=== PATIENT | male | born 1955 | race Caucasian/White ===

== ENCOUNTER 2017-06-18 06:53 | Day surgery (SDC) | payer BC ==
[2017-06-15 12:07] VITALS: BMI 26.1
--- NOTE | 2017-06-18 05:20 | P.GSHP ---
History of Present Illness H&P Date: 06/18/17 CHIEF COMPLAINT: GERD HISTORY OF PRESENT ILLNESS: The patient is a 61-year-old male who presents reports gastroesophageal reflux disease. Upper endoscopy was offered for further evaluation and management. PAST MEDICAL HISTORY: Please see list. PAST SURGICAL HISTORY: Please see list. MEDICATIONS: Please see list. ALLERGIES: Please see list. SOCIAL HISTORY: No illicit drug use FAMILY HISTORY: No reports of Crohn disease or ulcerative colitis. REVIEW OF ORGAN SYSTEMS: CONSTITUTIONAL: No reports of fevers or chills. GI: Denies any blood in stools or constipation. PHYSICAL EXAM: VITAL SIGNS: Stable GENERAL: Well-developed and pleasant in no acute distress. HEENT: No scleral icterus. Extraocular movements grossly intact. Moist buccal mucosa. NECK: Supple without lymphadenopathy. CHEST: Unlabored respirations. Equal bilateral excursions. CARDIOVASCULAR: Regular rate and rhythm. Distal 2+ pulses. ABDOMEN: Soft, nondistended. MUSCULOSKELETAL: No clubbing, cyanosis, or edema. ASSESSMENT: 1. Gastroesophageal reflux disease PLAN: 1. Recommend proceeding with an upper endoscopy Past Medical History Past Medical History: GERD/Reflux, Hyperlipidemia, Hypertension Additional Past Medical History / Comment(s): "wake up at night feeling like I am choking" History of Any Multi-Drug Resistant Organisms: None Reported Past Surgical History: Hernia Repair Additional Past Surgical History / Comment(s): colonoscopy, EGD, lap. isabelle fundoplasty Past Anesthesia/Blood Transfusion Reactions: Motion Sickness Smoking Status: Never smoker - Past Family History Mother Family Medical History: No Reported History Medications and Allergies Home Medications Medication Instructions Recorded Confirmed Type Omeprazole [PriLOSEC] 20 mg PO AC-BRKFST 06/15/17 06/15/17 History Allergies Allergy/AdvReac Type Severity Reaction Status Date / Time No Known Allergies Allergy Verified 06/15/17 11:41
[~2017-06-18 06:53] MED LIST: LACTATED RINGERS 1,000 ML IV SCH; LIDOCAINE 1% 20 ML VIAL (10MG/ML) FOR IV START INTRADERMA PRN
[2017-06-18 07:25] VITALS: RESP 18; TEMP 97.1
[2017-06-18] MEDS ORDERED: PROPOFOL 10 MG/ML 20 ML VIAL IV ONE (09:00)
[2017-06-18] MEDS ORDERED: LIDOCAINE 1% INJ 10MG/ML (20 ML MDV) ONE (09:00)
--- NOTE | 2017-06-18 09:15 | P.PCN ---
Date of Procedure: 06/18/17 Description of Procedure: PREOPERATIVE DIAGNOSIS: Gastroesophageal reflux disease. History of Denton fundoplasty POSTOPERATIVE DIAGNOSIS: Gastroesophageal reflux disease. History of Denton fundoplasty Mechanical failure of Denton fundoplasty Diaphragmatic hiatal hernia without obstruction. OPERATION: Esophagogastroduodenoscopy SURGEON: Marci Lane MD ANESTHESIA: MAC. INDICATIONS: The patient is a 61-year-old female who presents with a history of reflux disease. Benefits and risks of the procedure were described. Informed consent was obtained. DESCRIPTION: The patient was brought into the endoscopy suite and laid in the left lateral decubitus position. An Olympus gastroscope was passed along the posterior oropharynx down to the distal esophagus where the squamocolumnar junction was encountered at 39 cm from the incisors. During his coughing spell, projection of the gastric mucosa was found through the Denton fundoplasty was found highly suspicious of slipped Denton. The stomach was entered and no bile reflux was found. Additional findings are listed below. The first through third portion of the duodenum was examined and unremarkable. Retroflexion of the scope confirmed Hill grade 2 lower esophageal valve. The squamocolumnar junction demostrated no acute LA grade A erosive esophagitis. The stomach was desufflated. The patient tolerated the procedure well. FINDINGS: Squamocolumnar junction 39 cm from the incisors. Protruding gastric mucosa highly suspicious of slipped Denton fundoplasty upon entry Hill grade 2 lower esophageal valve. No LA grade A erosive esophagitis. No active duodenitis. RECOMMENDATIONS: Recommend floor esophagram to evaluate for slipped Denton fundoplasty Will likely need revision of his Denton with manometry Plan - Discharge Summary New Discharge Prescriptions: No Action Omeprazole [PriLOSEC] 20 mg PO AC-BRKFST Discharge Medication List Omeprazole [PriLOSEC] 20 mg PO AC-BRKFST 06/15/17 [History]
[2017-06-18 10:15] VITALS: BP 151/98; PULSE 45
== END 2017-06-18 10:20 | disposition home or self-care (01) ==
LOC: ORWHC2ENDO 06:53
PROVIDERS: ATTEND Surgery Plastic and Reconstructive Surgery
DX: K21.9 Gastro-esophageal reflux disease without esophagitis (principal); K44.9 Diaphragmatic hernia without obstruction or gangrene; Y83.8 Other surgical procedures as the cause of abnormal reaction of the patient, or of later complication, without mention of misadventure at the time of the procedure; E78.5 Hyperlipidemia, unspecified; I10 Essential (primary) hypertension; Z79.899 Other long term (current) drug therapy
CPT/HCPCS: 43235; J2001; J2704

== ENCOUNTER → 2017-06-18 | Outpatient (CLI) | payer BC ==
--- NOTE | 2017-06-18 11:07 | FL ---
EXAMINATION TYPE: FL barium swallow DATE OF EXAM: 06/18/2017 LIMITED UGI-ESOPHAGRAM: CLINICAL HISTORY: History of Ramirez fundoplication surgery 2 years ago presents with new onset choki ng since fall increasing is severely recently. TECHNIQUE: Limited esophagram is performed utilizing 20 oz of barium. A total of 7 seconds of fluoro scopic time was utilized during procedure. 17 spot images were saved. Comparison: Prior upper GI study dated May 25, [address] chest dated March 22, 2016. FINDINGS: The patient swallowed contrast without difficulty or delay. Esophageal peristalsis and mo tility are within normal limits. There is satisfactory flow of contrast along the diaphragmatic hiatu s into the stomach, there is no evidence of contrast extravasation to suggest leak. No recurrent hiat al hernia is seen. Diameter of channel at diaphragmatic hiatus does appear slightly narrowed versus p rior upper GI study. Patient remains asymptomatic. IMPRESSION: No evidence of leak recurrent hiatal hernia or significant obstruction though diameter of channel at diaphragmatic hiatus is diminished in caliber versus comparison upper GI images May 25, 2015.
== END | disposition home or self-care (01) ==
LOC: RADFLMAIN 10:27
PROVIDERS: ATTEND Surgery Plastic and Reconstructive Surgery
DX: R13.10 Dysphagia, unspecified (principal)
CPT/HCPCS: 74220

== ENCOUNTER → 2017-07-04 | Outpatient (CLI) | payer BC | END | disposition home or self-care (01) | LOC: LABPAT 12:54 | PROVIDERS: ATTEND Surgery Plastic and Reconstructive Surgery | DX: Z01.812 Encounter for preprocedural laboratory examination (principal); K44.9 Diaphragmatic hernia without obstruction or gangrene | CPT/HCPCS: 36415; 86850; 86900; 86901 ==

== ENCOUNTER 2017-07-12 11:34 | Inpatient (IN) | payer BC ==
[2017-07-04 11:10] VITALS: BMI 26.5
--- NOTE | 2017-07-12 07:53 | P.GSHP ---
History of Present Illness H&P Date: 07/12/17 CHIEF COMPLAINT: Recurrent GERD. HISTORY OF PRESENT ILLNESS: Cliff Herrera is a 61 year-old gentleman who comes in with recurrent GERD. An upper endoscopy demonstrated a sliding Denton fundoplasty. Upper endoscopy also demonstrated no gastric ulcers. He also completed an esophagram. He has yet to do a manometry. He had chronic cough for which he sees Dr. Flood. Now he presents for further evaluation and management. PAST MEDICAL HISTORY: Please see list. PAST SURGICAL HISTORY: Please see list. MEDICATIONS: Please see list. ALLERGIES: Please see list. SOCIAL HISTORY: No illicit drug use FAMILY HISTORY: No reports of Crohn disease or ulcerative colitis. REVIEW OF ORGAN SYSTEMS: CONSTITUTIONAL: No fevers or chills. HEENT: Denies any trouble with vision, hearing or nosebleeds. No difficulty swallowing. LYMPHATIC: The patient denies any lumps and bumps around the neck. ENDOCRINE: Denies any thyroid disorders. Denies any blood sugar glucose intolerance. RESPIRATORY: Denies pneumonia. Denies any troubles with breathing or dyspnea on exertion. Has chronic cough. CARDIOVASCULAR: Denies any chest pain, palpitations, or recent heart attacks. GASTROINTESTINAL: Denies fatty food intolerance. Denies change in bowel habits and gas bloat. Has GERD. GENITOURINARY: Denies any blood in urine or increased urinary frequency. MUSCULOSKELETAL: Denies any back pain, stiffness or joint arthritis. NEUROLOGIC: Denies any numbness or tingling along the distal extremities. No seizure disorders or headaches. PSYCHIATRIC: Denies any depression or suicidal ideation. HEMATOLOGIC: Denies any abnormal bleeding or bruising. BREASTS: Denies any breast lumps, pain or nipple discharge. SKIN: No current skin cancer. No rash. PHYSICAL EXAM: Patient is a 61-year-old male. GENERAL: Well developed and in no acute distress. Pleasant. HEENT: No sclera icterus. Extraocular movements grossly intact. Moist buccal mucosa. Head is atraumatic, normocephalic. Hears conversational speech. No nasal drainage. NECK: Supple without lymphadenopathy. No JV distention. CHEST: Non-labored respirations and equal bilateral excursions. CARDIOVASCULAR: Regular rate and rhythm. Palpable 2+ radial pulses. ABDOMEN: Soft. Non-tender. Nondistended. MUSCULOSKELETAL: No clubbing, cyanosis or edema. NEUROLOGIC: No focal or lateralizing signs. PSYCH: Appropriate affect. Alert and oriented to person, place and time. SKIN: Well perfused. Good skin turgor. STUDIES: An esophagram demonstrated no moderate regurgitation. Upper endoscopy also consistent with sliding Denton. ASSESSMENT: 1. Recurrent GERD. 2. Recurrent hiatal hernia. PLAN: 1. A manometry was performed showing ineffective esophageal motility, short LES , and low pressure of the LES. 2. Revision of laparoscopic hiatal hernia repair with possible Denton was described. As he is a revision, risks of complications were described. 3. He reports being on steroids by belt builder, which actually helped improve his cough and helps with his overall procedure. 4. In-patient hospitalization was advised at least 2 nights. 5. Hiatal hernia repair with mesh was reviewed with robotic approach. 6. DVT prophylaxis. Past Medical History Past Medical History: GERD/Reflux, Hyperlipidemia, Hypertension Additional Past Medical History / Comment(s): "wake up at night feeling like I am choking". NO MEDS FOR CHOLESTROL OR HTN- UNDER CONTROL PER PT. DX HIATAL HERNIA History of Any Multi-Drug Resistant Organisms: None Reported Past Surgical History: Hernia Repair Additional Past Surgical History / Comment(s): colonoscopy, EGD, lap. denton fundoplasty-2016 Past Anesthesia/Blood Transfusion Reactions: Motion Sickness Smoking Status: Never smoker - Past Family History Mother Family Medical History: No Reported History Medications and Allergies Home Medications Medication Instructions Recorded Confirmed Type Omeprazole [PriLOSEC] 20 mg PO AC-BRKFST 06/15/17 07/04/17 History Ranitidine HCl [Zantac] 150 mg PO DAILY #30 tab 06/18/17 07/04/17 Rx Allergies Allergy/AdvReac Type Severity Reaction Status Date / Time No Known Allergies Allergy Verified 07/04/17 11:06
[~2017-07-12 11:34] MED LIST changes: +DEXAMETHASONE SOD PHOSPHATE 10 MG/ML 1 ML VIAL IV ONE; +HYDROmorphone 0.5 MG/0.5 ML SYRINGE IVP PRN; -LACTATED RINGERS 1,000 ML IV SCH; -LIDOCAINE 1% 20 ML VIAL (10MG/ML) FOR IV START INTRADERMA PRN; +MIDAZOLAM 2 MG/2 ML VIAL IV PRN; +MORPHINE SULFATE 2 MG/ML SYRINGE IV PRN; +SCOPOLAMINE 1.5MG/72HR PATCH TRANSDERM ONE; +ceFAZolin IN SWFI 2 GM/20 ML SYRINGE IVP ONE; +fentaNYL (PF) 50 MCG/ML 2 ML AMP IV PRN
[2017-07-12 12:11] LABS: Glucose,Whole Blood 89 mg/dL (75-99)
[2017-07-12] MEDS: LIDOCAINE 1% 20 ML VIAL (10MG/ML) FOR IV START INTRADERMA PRN ×2 (12:14→12:18)
[2017-07-12] MEDS: LACTATED RINGERS 1,000 ML IV SCH ×3 (12:14→12:58)
[2017-07-12] MEDS: ONDANSETRON 4 MG/2 ML VIAL IVP ONE ×2 (12:28→17:56)
[2017-07-12] MEDS: HEPARIN SODIUM,PORCINE 5,000 UNIT/ML 1 ML VIAL SQ ONE ×2 (12:30→17:56)
[2017-07-12 12:53] LABS: HCT 48.6 % (39.0-53.0); HGB 16.6 gm/dL (13.0-17.5); MCH 30.9 pg (25.0-35.0); MCHC 34.1 g/dL (31.0-37.0); MCV 90.8 fL (80.0-100.0); Mean Platelet Volume 8.2; Platelet Count 183 k/uL (150-450); RBC 5.35 m/uL (4.30-5.90); RDW 12.9 % (11.5-15.5); WBC 6.3 k/uL (3.8-10.6)
[2017-07-12 13:01] LABS: ALT 38 U/L (21-72); AST 36 U/L (17-59); Albumin 4.4 g/dL (3.5-5.0); Alkaline Phosphatase 56 U/L (38-126); Anion Gap 15 mmol/L; Blood Urea Nitrogen 14 mg/dL (9-20); Calcium 10.9 mg/dL (8.4-10.2); Carbon Dioxide 23 mmol/L (22-30); Chloride 105 mmol/L (98-107); Glucose 89 mg/dL (74-99); Potassium 4.4 mmol/L (3.5-5.1); Sodium 143 mmol/L (137-145); Total Bilirubin 1.4 mg/dL (0.2-1.3); Total Protein 7.1 g/dL (6.3-8.2)
[2017-07-12] MEDS ORDERED: MIDAZOLAM 2 MG/2 ML VIAL ONE (13:01)
[2017-07-12] MEDS ORDERED: PROPOFOL 10 MG/ML 20 ML VIAL IV ONE (13:01)
[2017-07-12] MEDS ORDERED: MEPERIDINE 50 MG/ML SYRINGE ONE (13:01)
[2017-07-12] MEDS ORDERED: ePHEDrine SULFATE/0.9% NACL/PF 50 MG/5 ML SYRINGE IV ONE (13:01)
[2017-07-12] MEDS ORDERED: SUCCINYLCHOLINE CHLORIDE 100 MG/5 ML SYR IV ONE (13:01)
[2017-07-12] MEDS ORDERED: ROCURONIUM BROMIDE 10 MG/ML 10 ML VIAL IV ONE (13:01)
[2017-07-12] MEDS ORDERED: fentaNYL (PF) 50 MCG/ML 2 ML AMP ONE (13:01)
[2017-07-12] MEDS ORDERED: LIDOCAINE 1% INJ 10MG/ML (20 ML MDV) ONE (13:01)
[2017-07-12] MEDS ORDERED: BUPIVACAINE (PF) 0.5% 30 ML VIAL SQ ONE (13:25)
[2017-07-12] MEDS ORDERED: LACTATED RINGERS 1,000 ML IV ONE ×2 (15:05→15:54)
[2017-07-12] MEDS ORDERED: diphenhydrAMINE 50 MG/ML 1 ML VIAL IVP ONE (16:54)
--- NOTE | 2017-07-12 17:00 | P.OP ---
Date of Procedure: 07/12/17 Description of Procedure: DESCRIPTION OF PROCEDURE(S): SURGEON: BUD ALTAMIRANO MD LEASING SALES CONSULTANT: 1. Ashlee Hui. 2. Inés Wilkes. PREOPERATIVE DIAGNOSES: 1. Gastroesophageal reflux disease. 2. Paraesophageal hiatal hernia, midline, recurrent 3. History of previous Denton fundoplasty 4. Essential hypertension 5. Hyperlipidemia 6. Chronic cough 7. Ineffective esophageal motility POSTOPERATIVE DIAGNOSES: 1. Gastroesophageal reflux disease. 2. Paraesophageal incarcerated hiatal hernia, midline, recurrent, 4 x 4 cm 3. History of previous Denton fundoplasty 4. Slipped Denton fundoplasty 5. Essential hypertension 6. Hyperlipidemia 7. Chronic cough 8. Adverse reaction to foreign body, intra-abdominal mesh 9. Ineffective esophageal motility OPERATION: 1. Robotic-assisted da Gumaro Xi laparoscopic takedown of Denton fundoplasty 2. Robotic-assisted da Gumaro Xi laparoscopic extensive lysis of adhesions over 2 hours for perigastric adhesions 3. Robotic-assisted da Gumaro Xi laparoscopic reduction and repair of recurrent incarcerated paraesophageal hiatal hernia, 4 x 4 cm, with Abingdon Biopatch A 8 x 8 cm. 4. Robotic-assisted da Gumaro Xi laparoscopic removal of foreign body, previous mesh from hiatal hernia 5. Intraoperative esophagogastroduodenoscopy ANESTHESIA: General with local anesthetic. ESTIMATED BLOOD LOSS: 75 mL SPECIMENS REMOVED: Foreign body consistent with previous hiatal hernia mesh COMPLICATIONS: None. FINDINGS: 1. Thoracic length 16.5 cm. 2. Slipped Denton fundoplasty 3. Incarcerated upper pole of the stomach 4. Paraesophageal incarcerated recurrent diaphragmatic hiatal hernia 4 cm axial length by 4 cm width, with moderate dissection into the mediastinum. 5. Abingdon Biopatch A onlay mesh placed, posterior hiatal hernia repair reinforcement 6. Closure of the hiatus consistent with 56-Tajik bougie. 7. Takedown of Denton fundoplasty secondary to ineffective esophageal motility to prevent dysphagia INDICATIONS: The patient is a 61-year-old male who presents with gastroesophageal reflux and a symptomatic diaphragmatic hiatal hernia. Preoperative workup including upper endoscopy demonstrated recurrent hiatal hernia and slipped Denton fundoplasty. He completed an esophageal manometry demonstrating ineffective esophageal dysmotility. Given the severity of his symptoms, particularly of his symptomatic diaphragmatic hiatal hernia, he had elected for surgical intervention. Benefits and risks including bleeding, infection, recurrence, dysphagia, injury to the lung, need for further surgery was described at length. Informed consent was obtained. DESCRIPTION: The patient was brought into the operating room and placed in supine position. Preoperatively he had received heparin subcutaneously for DVT prophylaxis. After general induction, the abdomen was prepped and draped in standard sterile fashion. The patient had previously voided prior to coming to the operating room. Ioban draping was placed along the abdomen. A timeout protocol was confirmed with the surgical team, for which the patient's name, procedure to be performed including DVT prophylaxis with bilateral SCDs, and preoperative antibiotics were also confirmed. Robotic da Gumaro Xi system was prepped and primed. At 12 cm from the xiphoid to just below the umbilicus, proposed port sites were marked with indelible marker along the left axillary line, left mid-clavicular line with each ports were marked 10 cm from each other. A 5 mm 0 degrees laparoscopic trocar entry was performed along the left upper quadrant. The abdomen was insufflated to 15 mmHg pressure he tolerated well. Diagnostic laparoscopy demonstrated no injury to bowel, viscera, or mesentery. The gallbladder was unremarkable. The liver surface was unremarkable. No injury had occurred to the small bowel or viscera. Along the hiatus, moderate perigastric adhesions were found from his previous fundoplasty. Next, one 8 mm robotic port was placed along the right upper abdomen. An 8-mm port was were placed along the left lateral abdominal wall. The camera 8-mm port was maintained along the epigastrium via the hernia defect. A 12 mm port was placed along the left upper abdominal wall after exchanging the 5 mm port. Please note that the ports were placed at least 20 cm away from the target anatomy. Care was taken to check that each robotic arm were safely away from collision with the bed or the patient. At the epigastrium, a medium sized Emelia liver retractor was placed under direct visualization with the Iron Model Maker Fiberglass placed over the right shoulder of the patient. The additional third robotic arm was used.. The patient was repositioned in reverse Trendelenburg position at 14-degrees after lowering the bed. The robot was docked above the left side of the patient. Using a grasper for arm 3, a grasper for arm 1, including vessel sealer for arm 4, the robotic system was docked and primed as described. Instruments were interchanged by the web production assistant. I had sat at the console. The phrenoesophageal ligament had moderate scarring where the distal esophagus was mobilized circumferentially. Care was taken to avoid any injury to the bilateral vagi nerves. An incarcerated hiatal hernia lipoma was found along the mediastinum and retracted into the abdominal cavity. Next dissection into the mediastinum was performed to the mid esophagus. The left and right crura was identified. A Italian cheese cystic lesions were found about the hiatus including posteriorly from his previous mesh repair. The foreign body was excised using scissors and vessel sealer. Much of the mesh was removed to allow complete mobilization and freeing of the Denton fundoplasty which had slipped along the cardia of the stomach. The hiatal hernia sac was incarcerated into the mediastinum and divided to allow complete mobilization and freeing of the distal esophagus into the abdominal cavity. Care was taken to avoid any gastrotomy to the incarcerated upper pole of the stomach including takedown of the Denton fundoplasty. Extensive lysis of adhesions went more than 2 hours for extended dissection of the adherent stomach t to the left diaphragm. The measured defect was consistent with 4 cm axial length and 4 cm in width. The distal esophagus of at least 3 cm was brought into the abdominal cavity. Once the hiatus and crura was dissected, 2-0 VLOC suture was placed as a running suture to re-approximate the diaphragmatic hiatus posteriorly. To buttress the repair, a Abingdon Biopatch A was prepared along the back table and cut in a anderson-hole fashion as to reinforce the repair as an underlay. The mesh was placed along the crural repair posteriorly then cut in half and tagged using horizontal mattress sutures using 2-0 VLOC. A repeat Denton fundoplasty was avoided as the patient has ineffective esophageal dysmotility which would cause postoperative dysphagia and worsening symptoms. I went to the head of the bed to perform intraoperative esophagogastroduodenoscopy. A 56-Tajik bougie was carefully placed along the posterior oropharynx through the hiatus as a visual aid for hiatus closure and then removed. An Olympus gastroscope was passed through posterior oropharynx, where the GE junction was found distal to the diaphragmatic hiatus. The intra-abdominal esophageal length obtained during the case was over 3 cm. The stomach was entered. The duodenum was unremarkable. Retroflexion of the scope confirmed a Hill grade 1+ lower esophageal valve. The stomach had been desufflated. No evidence of leaks were found or mucosal defects of the esophagus or stomach. The hiatal closure was consistent with a 56 Tajik bougie as a bougie was passed. This concluded the endoscopic portion of the case. The robot was undocked from the patient. I re-scrubbed into the case. All instruments and pneumoperitoneum were evacuated from the abdominal cavity. Incisions were reapproximated using 4-0 Monocryl in an interrupted subcuticular fashion. All incisions were cleaned using dilute hydrogen peroxide. The 12-mm port site fascial defect was less than 8 mm in size. Dermabond was applied to the skin. Local anesthetic was infiltrated in all wounds for postop analgesia. Multiple intra-abdominal films were obtained. At the end of the procedure, needle, sponge, and instrument count was verified correct by the surgical asst. The patient had tolerated the procedure well and was taken to the postanesthesia unit in stable condition. Intraoperative films were reviewed with the patient's family who were pleased with the level of care. Plan - Discharge Summary Discharge Rx Participant: Yes New Discharge Prescriptions: No Action Omeprazole [PriLOSEC] 20 mg PO AC-BRKFST Ranitidine HCl [Zantac] 150 mg PO DAILY #30 tab Discharge Medication List Omeprazole [PriLOSEC] 20 mg PO AC-BRKFST 06/15/17 [History] Ranitidine HCl [Zantac] 150 mg PO DAILY #30 tab 06/18/17 [Rx]
[2017-07-12] MEDS ORDERED: diphenhydrAMINE 50 MG/ML 1 ML VIAL IVP PRN (17:01)
[2017-07-12] MEDS ORDERED: SODIUM CHLORIDE 0.9% 1,000 ML IV ONE (17:01)
[2017-07-12] MEDS ORDERED: ONDANSETRON 4 MG/2 ML VIAL IVP PRN (17:01)
[2017-07-12] MEDS ORDERED: HYDROcodone/APAP 15 ML SOLUTION PO PRN (17:01)
[2017-07-12] MEDS ORDERED: NALOXONE 0.4 MG/ML 1 ML VIAL IV PRN (17:01)
[2017-07-12] MEDS: KETOROLAC 30 MG/ML 1 ML VIAL IVP SCH (17:40)
[2017-07-12] MEDS: MORPHINE SULFATE/PF 10MG/10ML VL IVP PRN ×2 (19:20→22:43)
[2017-07-12] MEDS: ALBUTEROL NEBULIZED 2.5 MG/3 ML INHALATION SCH (19:30)
[2017-07-12 20:15] VITALS: RESP 16
[2017-07-12] MEDS: AMPICILLIN-SULBACTAM 3 GM in SODIUM CHLORIDE 0.9% 100 ML IVPB SCH (20:37)
[2017-07-12] MEDS: SIMETHICONE 40 MG/0.6 ML DROPS 2,000 MG/30 ML BOTTLE PO SCH (20:38)
[2017-07-12] MEDS: HYOSCYAMINE ORAL DROPS 1.875 MG/15 ML BOTTLE PO SCH (20:38)
[2017-07-12] MEDS: 0.9% NACL WITH KCL 20 MEQ/L 1,000 ML IV SCH ×2 (20:38→23:58)
[2017-07-13] MEDS: SIMETHICONE 40 MG/0.6 ML DROPS 2,000 MG/30 ML BOTTLE PO SCH ×3 (01:32→12:36)
[2017-07-13] MEDS: HYOSCYAMINE ORAL DROPS 1.875 MG/15 ML BOTTLE PO SCH ×2 (01:32→06:37)
[2017-07-13] MEDS: AMPICILLIN-SULBACTAM 3 GM in SODIUM CHLORIDE 0.9% 100 ML IVPB SCH (01:32)
[2017-07-13] MEDS: KETOROLAC 30 MG/ML 1 ML VIAL IVP SCH ×3 (01:32→12:35)
[2017-07-13] MEDS: MORPHINE SULFATE/PF 10MG/10ML VL IVP PRN ×2 (03:38→07:30)
[2017-07-13] MEDS: ALBUTEROL NEBULIZED 2.5 MG/3 ML INHALATION SCH ×3 (07:18→16:14)
[2017-07-13] MEDS: 0.9% NACL WITH KCL 20 MEQ/L 1,000 ML IV SCH (07:46)
[2017-07-13 07:56] LABS: Basophils % (A) 0 %; Eosinophils % (A) 0 %; HCT 39.9 % (39.0-53.0); Lymphocytes # (A) 0.9 k/uL (1.0-4.8); Lymphocytes % (A) 10 %; MCH 31.5 pg (25.0-35.0); MCHC 33.9 g/dL (31.0-37.0); Monocytes # (A) 0.4 k/uL (0-1.0); Monocytes % (A) 5 %; Neutrophils # (A) 7.8 k/uL (1.3-7.7); Neutrophils % (A) 84 %; Platelet Count 175 k/uL (150-450); WBC 9.2 k/uL (3.8-10.6)
[2017-07-13 07:58] LABS: Anion Gap 7 mmol/L; Blood Urea Nitrogen 12 mg/dL (9-20); Calcium 9.7 mg/dL (8.4-10.2); Carbon Dioxide 27 mmol/L (22-30); Chloride 102 mmol/L (98-107); HGB 13.5 gm/dL (13.0-17.5); Magnesium 1.9 mg/dL (1.6-2.3); Phosphorus 3.8 mg/dL (2.5-4.5); Potassium 4.5 mmol/L (3.5-5.1); Sodium 136 mmol/L (137-145)
[2017-07-13] MEDS ORDERED: 0.9% NACL WITH KCL 20 MEQ/L 1,000 ML IV SCH (08:00)
[2017-07-13] MEDS ORDERED: TAMSULOSIN 0.4 MG CAP.ER.24H PO SCH (09:00)
[2017-07-13] MEDS ORDERED: ENOXAPARIN 40 MG/0.4 ML SYRINGE SQ SCH (09:00)
[2017-07-13] MEDS ORDERED: PANTOPRAZOLE 40 MG/10 ML VIAL IV SCH (09:00)
--- NOTE | 2017-07-13 10:10 | FL ---
EXAMINATION TYPE: FL UGI DATE OF EXAM: 07/13/2017 LIMITED UGI-ESOPHAGRAM: CLINICAL HISTORY: Status post Ramirez procedure yesterday. TECHNIQUE: Limited UGI-esophagram is performed utilizing 20 oz of contrast. A total of 41 seconds of fluoroscopic time was utilized during procedure. 6 spot images are saved. FINDINGS: The patient swallowed contrast without difficulty or delay. Esophageal peristalsis and mo tility are within normal limits. There is good flow of contrast along the diaphragmatic hiatus into t he stomach, there is no evidence of contrast extravasation to suggest leak. No persistent hiatal oneida ia is seen. Patient remains asymptomatic. Minimal amount of pneumoperitoneum below right hemidiaphrag m is presumed postsurgical. IMPRESSION: No evidence of leak or significant obstruction status post reoperation on Ramirez fundopli cation surgery performed yesterday.
--- NOTE | 2017-07-13 11:21 | P.PN ---
<KristianSisHarriett M - Last Filed: 07/13/17 11:11> Subjective Progress Note Date: 07/13/17 61-year-old male seen at bedside noted patient had episodes of urinary retention last evening voided 150 bladder scan for 700. Flomax has been initiated. Patient did have a limited esophagram done this morning no evidence of a leak or significant obstruction noted. Patient states he has been up ambulating in the hallway. Not passing gas no stool. Tolerating diet as prescribed Postop July 12 robotic-assisted laparoscopic takedown of denton fundoplication , extensive lysis of adhesions , reduction and repair of recurrent incarcerated periesophageal hiatal hernia , pelviscopy removal of the foreign body , previous mesh from hiatal hernia Objective - Vital Signs Vital signs: Vital Signs Temp 98.7 F 07/13/17 07:58 Pulse 76 07/13/17 07:58 Resp 16 07/13/17 07:58 BP 145/80 07/13/17 07:58 Pulse Ox 95 07/13/17 07:58 Intake & Output 07/12/17 07/13/17 07/13/17 18:59 06:59 18:59 Intake Total 2500 1890 600 Output Total 375 1700 875 Balance 2125 190 -275 Weight 83.915 kg Intake: IV 2500 600 0.9% NaCl with KCl 20 Meq 600 /l 1,000 ml @ 100 mls/hr IV .Q10H LUISITO Rx#: [id number] Intake, IV Titration 1350 Amount 0.9% NaCl with KCl 20 Meq 1150 /l 1,000 ml @ 150 mls/hr IV .Q6H40M LUISITO Rx#: [id number] Ampicillin-Sulbactam 3 gm 200 In Sodium Chloride 0.9% 100 ml @ 100 mls/hr IVPB Q6HR LUISITO Rx#:[id number] Oral 540 Output: Urine 300 1700 875 Straight 800 725 Estimated Blood Loss 75 Other: # Voids 2 - Exam Physical exam 61-year-old male sitting up in bed appears in no acute distress pain medication effective for pain control oriented 3 Lungs clear adequate air movement on room air sats 95% no cough Heart S1-S2 audible regular Abdomen surgical incision sites dressings dry soft few hypoactive bowel tones no nausea no vomiting no stool tolerating bariatric clear Extremity no edema - Labs CBC & Chem 7: 07/13/17 06:57 03/30/18 06:57 Labs: Abnormal Lab Results - Last 24 Hours (Table) 07/12/17 07/13/17 07/13/17 Range/Units 12:10 06:57 06:57 Neutrophils # 7.8 H (1.3-7.7) k/uL Lymphocytes # 0.9 L (1.0-4.8) k/uL Sodium 136 L (137-145) mmol/L Calcium 10.9 H (8.4-10.2) mg/dL Total Bilirubin 1.4 H (0.2-1.3) mg/dL Assessment and Plan Assessment: Impression Symptomatic symptoms esophageal reflex due to diaphragmatic hiatus hernia Recurrent GERD Recurrent hiatal hernia Postop July 12 robotic-assisted laparoscopic removal of foreign body, laparoscopic takedown of Denton fundoplication, extensive lysis of adhesions, reduction and repair of recurrent incarcerated periesophageal hiatal hernia Postop urinary retention Plan We'll stop the scopolamine patch and hycosamine Continue postop surgical care Encourage ambulation Bariatric clear liquid diet DVT and GI prophylaxis Flomax as ordered Pain control The above impression and plan of care have been discussed and directed by signing physician. Harriett Townsend nurse practitioner acting as scribe for signing physician. <Marci Lane N - Last Filed: 07/13/17 16:10> Objective - Vital Signs Vital signs: Vital Signs Temp 98.0 F 07/13/17 15:00 Pulse 61 07/13/17 15:00 Resp 16 07/13/17 15:00 BP 149/84 07/13/17 15:00 Pulse Ox 96 07/13/17 15:00 Intake & Output 07/12/17 07/13/17 07/13/17 18:59 06:59 18:59 Intake Total 2500 1890 600 Output Total 375 1700 1775 Balance 2125 190 -1175 Weight 83.915 kg 83.915 kg Intake: IV 2500 600 0.9% NaCl with KCl 20 Meq 600 /l 1,000 ml @ 100 mls/hr IV .Q10H [facility]ISITO Rx#: [id number] Intake, IV Titration 1350 Amount 0.9% NaCl with KCl 20 Meq 1150 /l 1,000 ml @ 150 mls/hr IV .Q6H40M [facility]ISITO Rx#: [id number] Ampicillin-Sulbactam 3 gm 200 In Sodium Chloride 0.9% 100 ml @ 100 mls/hr IVPB Q6HR [facility] Rx#:[id number] Oral 540 Output: Urine 300 1700 1775 Straight 800 725 Estimated Blood Loss 75 Other: Voiding Method Urinal # Voids 2 - Labs CBC & Chem 7: 07/13/17 06:57 07/13/17 06:57 Labs: Abnormal Lab Results - Last 24 Hours (Table) 07/13/17 07/13/17 Range/Units 06:57 06:57 Neutrophils # 7.8 H (1.3-7.7) k/uL Lymphocytes # 0.9 L (1.0-4.8) k/uL Sodium 136 L (137-145) mmol/L
--- NOTE | 2017-07-13 13:45 | US ---
EXAMINATION TYPE: US gallbladder DATE OF EXAM: 07/13/2017 COMPARISON: NONE CLINICAL HISTORY: Right upper quadrant pain. Difficult exam due to overlying bowel gas. Patient had h iatal hernia repair done yesterday. EXAM MEASUREMENTS: Liver Length: 14.0 cm Gallbladder Wall: 0.2 cm CBD: 0.4 cm Right Kidney: 9.5 x 5.1 x 5.2 cm Pancreas: Obscured by bowel gas Liver: Heterogeneous Gallbladder: wnl Evidence for sonographic Wayne's sign: No CBD: wnl as visualized, distal portion is obscured by bowel gas Right Kidney: Nodular contour. No hydronephrosis. There is no ascites. IMPRESSION: There are limitations to the exam. Question hepatic steatosis. No evident gallstone.
[2017-07-13 15:07] VITALS: BP 149/84; TEMP 98
--- NOTE | 2017-07-13 16:11 | P.PN ---
Progress Note - Text Progress Note Date: 07/13/17 Now urinating. Doing well. Discharge instructions reviewed. May discharge home.
[2017-07-13 16:26] VITALS: PULSE 72
[2017-07-14] MEDS ORDERED: BISACODYL 5 MG TABLET.DR PO PRN (08:00)
--- NOTE | 2017-07-14 19:07 | P.DS ---
Providers Date of admission: 07/12/17 11:34 Expected date of discharge: 07/13/17 Attending physician: Marci Lane Primary care physician: Jamie Morocho, DO - Discharge Diagnosis(es) (1) Paraesophageal hernia with obstruction but no gangrene Status: Acute (2) Gastroesophageal reflux disease Status: Acute (3) Ineffective esophageal motility Status: Acute (4) Hyperlipidemia Status: Acute (5) Hypertension Status: Acute Hospital Course: POSTOPERATIVE DIAGNOSES: 1. Gastroesophageal reflux disease. 2. Paraesophageal incarcerated hiatal hernia, midline, recurrent, 4 x 4 cm 3. History of previous [place] fundoplasty 4. Slipped [place] fundoplasty 5. Essential hypertension 6. Hyperlipidemia 7. Chronic cough 8. Adverse reaction to foreign body, intra-abdominal mesh 9. Ineffective esophageal motility COURSE: The patient is a 61-year-old male who presents with gastroesophageal reflux and a symptomatic diaphragmatic hiatal hernia. Preoperative workup including upper endoscopy demonstrated recurrent hiatal hernia and slipped [place] fundoplasty. He completed an esophageal manometry demonstrating ineffective esophageal dysmotility. Given the severity of his symptoms, particularly of his symptomatic diaphragmatic hiatal hernia, he had elected for surgical intervention. Benefits and risks including bleeding, infection, recurrence, dysphagia, injury to the lung, need for further surgery was described at length. Postprocedure, he was tolerating diet. No reports of abdominal pain. He was able to urinate prior to discharge. Pertinent Studies: Esophagram demonstrates no leaks or obstruction Procedures: OPERATION: 1. Robotic-assisted da Gumaro Xi laparoscopic takedown of [place] fundoplasty 2. Robotic-assisted da Gumaro Xi laparoscopic extensive lysis of adhesions over 2 hours for perigastric adhesions 3. Robotic-assisted da Gumaro Xi laparoscopic reduction and repair of recurrent incarcerated paraesophageal hiatal hernia, 4 x 4 cm, with [place] Biopatch A 8 x 8 cm. 4. Robotic-assisted da Gumaro Xi laparoscopic removal of foreign body, previous mesh from hiatal hernia 5. Intraoperative esophagogastroduodenoscopy ANESTHESIA: General with local anesthetic. ESTIMATED BLOOD LOSS: 75 mL SPECIMENS REMOVED: Foreign body consistent with previous hiatal hernia mesh COMPLICATIONS: None. FINDINGS: 1. Thoracic length 16.5 cm. 2. Slipped [place] fundoplasty 3. Incarcerated upper pole of the stomach 4. Paraesophageal incarcerated recurrent diaphragmatic hiatal hernia 4 cm axial length by 4 cm width, with moderate dissection into the mediastinum. 5. [place] Biopatch A onlay mesh placed, posterior hiatal hernia repair reinforcement 6. 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 7. Takedown of [place] fundoplasty secondary to ineffective esophageal motility to prevent dysphagia Patient Condition at Discharge: Good Plan - Discharge Summary Discharge Rx Participant: Yes New Discharge Prescriptions: New HYDROcodone/APAP [[place] Elixir 7.5-325Mg/15Ml] 15 ml PO Q6H PRN #300 solution PRN Reason: Pain Hyoscyamine Elixir [Levsin 0.125MG/ML Drops] 0.125 mg PO HS PRN #10 ml PRN Reason: Gi Upset Simethicone 40 mg/0.6 ml Drops [Mylicon Drops] 40 mg PO QID PRN #30 ml PRN Reason: Gi Upset Bisacodyl [Dulcolax] 5 mg PO DAILY #20 tablet. Tamsulosin [Flomax] 0.4 mg PO DAILY #7 cap Discontinued Omeprazole [PriLOSEC] 20 mg PO AC-BRKFST Ranitidine HCl [Zantac] 150 mg PO DAILY #30 tab Discharge Medication List Bisacodyl [Dulcolax] 5 mg PO DAILY #20 tablet. 07/13/17 [Rx] HYDROcodone/APAP [[place] Elixir 7.5-325Mg/15Ml] 15 ml PO Q6H PRN #300 solution [Rx] Hyoscyamine Elixir [Levsin 0.125MG/ML Drops] 0.125 mg PO HS PRN #10 ml 07/13/17 [Rx] Simethicone 40 mg/0.6 ml Drops [Mylicon Drops] 40 mg PO QID PRN #30 ml 07/13/17 [Rx] Tamsulosin [Flomax] 0.4 mg PO DAILY #7 cap 07/13/17 [Rx] Follow up Appointment(s)/Referral(s): Marci Lane MD [STAFF PHYSICIAN] - 07/17/17 Patient Instructions/Handouts: Laparoscopic Hiatal Hernia Repair (DC) Activity/Diet/Wound Care/Special Instructions: No lifting over 4 pounds (half galloon of milk) in 4 weeks No bath tub soaks. May shower. No carbonated beverages. No straws. Please follow hand-out provided by Dr. Lane from the office. Take medications as prescribed. Discharge Disposition: HOME SELF-CARE
--- NOTE | 2017-07-17 11:45 | CDI ---
Last Revision, March 2017 Documentation Clarification Form Date: 07/17/16 1140 From: Maria Del Carmen Mann RN, CCDS Admit Date: 07/12/2017 11:34:00 AM Patient Name: Cliff Herrera Visit Number: [id number] ATTENTION: The Clinical Documentation Specialists (CDI) and [facility] Coding Staff appreciate your assistance in clarifying documentation. Please respond to the clarification below the line at the bottom and electronically sign. The CDI & [facility] Coding staff will review the response and follow-up if needed. Please note: Queries are made part of the Legal Health Record. If you have any questions, please contact the author of this message via ITS. Dr. Marci Lane/ Harriett Townsend CNP P-op Urinary retention is documented in the Surgical Progress Notes. Patients Admitting Diagnosis: Gastroesophageal reflux disease. 2. Paraesophageal hiatal hernia, midline, recurrent 3. History of previous [place] fundoplasty 4. Essential hypertension 5. Hyperlipidemia 6. Chronic cough 7. Ineffective esophageal motility Post-Operative Diagnosis: Same as pre-op diagnosis + adverse reaction to foreign body, intra-abdominal mesh Procedure performed: Robotic-assisted da Gumaro Xi laparoscopic takedown of [place] fundoplasty 2. Robotic-assisted da Gumaro Xi laparoscopic extensive lysis of adhesions over 2 hours for perigastric adhesions 3. Robotic-assisted da Gumaro Xi laparoscopic reduction and repair of recurrent incarcerated paraesophageal hiatal hernia, 4 x 4 cm, with [place] Biopatch A 8 x 8 cm. 4. Robotic-assisted da Gumaro Xi laparoscopic removal of foreign body, Previous mesh from hiatal hernia 5. Intraoperative esophagogastroduodenoscopy History/Risk Factors: Surgical procedure, anasthesia Clinical Indicators: Pt voided 150 cc in P-op period and a p-void bladder scan revealed 700 cc residual. Treatment: Pt was straight cathed twice in the post operative period for 800cc and 725 cc Pt was also started on Flomax In order to accurately reflect this patients severity of illness, please clarify if the post-operative diagnosis is: An expected post-procedural or post-surgical condition; Integral to the procedure; Inherent to the procedure; An unexpected post-procedural or post-surgical condition related to surgical care; Other, please specify Unable to determine Please continue to document in your progress notes and discharge summary in order to capture severity of illness and risk of mortality. Include clinical findings that support your diagnosis. MTDD
== END 2017-07-13 16:35 | disposition home or self-care (01) | DRG 327 ==
LOC: 2ORMAIN 11:34 → 3SUR 17:15
PROVIDERS: ADMIT Surgery Plastic and Reconstructive Surgery; ATTEND Surgery Plastic and Reconstructive Surgery
PROC: 0BUT4JZ Supplement Diaphragm with Synthetic Substitute, Percutaneous Endoscopic Approach (ICD-10-PCS; 2017-07-12)
PROC: 0DN64ZZ Release Stomach, Percutaneous Endoscopic Approach (ICD-10-PCS; 2017-07-12)
PROC: 0DP Gastrointestinal System, Removal (ICD-10-PCS; 2017-07-12)
PROC: 8E0W4CZ Robotic Assisted Procedure of Trunk Region, Percutaneous Endoscopic Approach (ICD-10-PCS; 2017-07-12)
PROC: 0DJ08ZZ Inspection of Upper Intestinal Tract, Via Natural or Artificial Opening Endoscopic (ICD-10-PCS; 2017-07-12)
PROC: 0DQ44ZZ Repair Esophagogastric Junction, Percutaneous Endoscopic Approach (ICD-10-PCS; principal; 2017-07-12 13:45)
DX: K91.89 Other postprocedural complications and disorders of digestive system (principal); K44.0 Diaphragmatic hernia with obstruction, without gangrene; K66.0 Peritoneal adhesions (postprocedural) (postinfection); T50.995A Adverse effect of other drugs, medicaments and biological substances, initial encounter; R13.10 Dysphagia, unspecified; N99.89 Other postprocedural complications and disorders of genitourinary system; R33.8 Other retention of urine; D17.79 Benign lipomatous neoplasm of other sites; E78.5 Hyperlipidemia, unspecified; K21.9 Gastro-esophageal reflux disease without esophagitis; I10 Essential (primary) hypertension; R05 Cough; K22.4 Dyskinesia of esophagus; Z79.899 Other long term (current) drug therapy; Y83.8 Other surgical procedures as the cause of abnormal reaction of the patient, or of later complication, without mention of misadventure at the time of the procedure
CPT/HCPCS: 36415; 74240; 76705; 80051; 80053; 82310; 82565; 83735; 84100; 84520; 85025; 85027; 86850; 86900; 86901; 88304; 93005; 94640; 94760; 94762

== ENCOUNTER 2020-05-07 21:46 | Observation (INO) | payer BC ==
[2020-05-07] MEDS ORDERED: ONDANSETRON 4 MG/2 ML VIAL IVP PRN (22:16)
[2020-05-07] MEDS ORDERED: MORPHINE SULFATE 4 MG/ML SYRINGE IV PRN (22:16)
[2020-05-07] MEDS ORDERED: NALOXONE 0.4 MG/ML 1 ML VIAL IV PRN (22:16)
--- NOTE | 2020-05-07 22:16 | ED ---
General Adult HPI - General Source: patient, RN/MD, EMS Mode of arrival: EMS Limitations: no limitations <Smitha Scanlon - Last Filed: 05/07/20 22:41> <Alysha Barron - Last Filed: 05/12/20 00:27> - General Chief complaint: Chest Pain Stated complaint: Hypertension Time Seen by Provider: 05/07/20 21:50 - History of Present Illness Initial comments: 64 year-old male patient presents to the emergency department as a transfer for cardiology evaluation. Patient presented to [facility] emergency department with complaints of elevated blood pressure, chest pain, shortness of breath, and dizziness. Patient states that it started when he was carrying bricks in his back yard. States that in the middle of moving them he became short of breath and lost all energy. States that he checked his blood pressure and it was quite high with systolic over 200. States he was having an aching in his substernal chest and intermittent bursts of stabbing pain. States that he has been experiencing increased shortness of breath especially with activity over the last week or two. Denies any swelling or pain to his lower extremities. States that the elevated blood pressure persisted overnight so he presented to ER toda y. He had two negative trops at the other hospital. CT angio head, neck, and chest negative. Blood pressures remained elevated despite receiving ativan, nitro, hydralazine, and catapres. He was transferred here for admission and evaluation by cardiology. She was previously on blood pressure medication but was able to keep a controlled with diet and exercise. States he generally checks his blood pressure every 3-4 weeks and has never had this high breathing in the past. He does have family history of cardiac disease. He does not smoke. Patient denies any recent rash, fever, chills, cough, abdominal pain, nausea, vomiting, diarrhea, constipation, back pain, numbness, tingling, hematuria, dy suria, urinary urgency, urinary frequency, headache, visual changes, or any other complaints. (Smitha Scanlon) - Related Data Home Medications Medication Instructions Recorded Confirmed Ibuprofen [Motrin Ib] 400 mg PO Q8H PRN 05/07/20 05/07/20 Previous Rx's Medication Instructions Recorded Aspirin 81 mg PO DAILY chew 05/08/20 Metoprolol Tartrate [Lopressor] 50 mg PO BID #60 tab 05/08/20 Allergies Allergy/AdvReac Type Severity Reaction Status Date / Time No Known Allergies Allergy Verified 05/07/20 21:55 Review of Systems ROS Other: All systems not noted in ROS Statement are negative. <Smitha Scanlon - Last Filed: 05/07/20 22:41> ROS Other: All systems not noted in ROS Statement are negative. <Alysha Barron - Last Filed: 05/12/20 00:27> ROS Statement: Those systems with pertinent positive or pertinent negative responses have been documented in the HPI. Past Medical History Past Medical History: GERD/Reflux, Hyperlipidemia, Hypertension Additional Past Medical History / Comment(s): "wake up at night feeling like I am choking". NO MEDS FOR CHOLESTROL OR HTN- UNDER CONTROL PER PT. DX HIATAL HERNIA History of Any Multi-Drug Resistant Organisms: None Reported Past Surgical History: Hernia Repair Additional Past Surgical History / Comment(s): colonoscopy, EGD, lap. isabelle fundoplasty-2016 Past Anesthesia/Blood Transfusion Reactions: Motion Sickness Past Psychological History: No Psychological Hx Reported Smoking Status: Never smoker Past Alcohol Use History: Occasional Past Drug Use History: None Reported - Past Family History Mother Family Medical History: No Reported History <Smitha Scanlon - Last Filed: 05/07/20 22:41> General Exam Limitations: no limitations General appearance: alert, in no apparent distress, other (Physical well- developed, well-nourished adult male patient in no acute distress. Vital signs upon presentation are temperature 97.8F, pulse 63, respirations 16, blood pre ssure 184/118, pulse ox 96% on room air.) Eye exam: Present: normal appearance, PERRL, EOMI. Absent: scleral icterus, conjunctival injection, periorbital swelling ENT exam: Present: normal exam, normal oropharynx, mucous membranes moist Respiratory exam: Present: normal lung sounds bilaterally. Absent: respiratory distress, wheezes, rales, rhonchi, stridor Cardiovascular Exam: Present: regular rate, normal rhythm, normal heart sounds. Absent: systolic murmur, diastolic murmur, rubs, gallop, clicks GI/Abdominal exam: Present: soft, normal bowel sounds. Absent: distended, tenderness, guarding, rebound, rigid Extremities exam: Present: normal inspection, full ROM, normal capillary refill, other (No swelling noted to the lower extremities. Pedal and posttibial pulses are 2+.). Absent: tenderness, pedal edema, joint swelling, calf tenderness Neurological exam: Present: alert, oriented X3, CN II-XII intact Psychiatric exam: Present: normal affect, normal mood Skin exam: Present: warm, dry, intact, normal color. Absent: rash <Smitha Scanlon - Last Filed: 05/07/20 22:41> Course Vital Signs 05/07/20 05/07/20 05/07/20 21:47 22:00 22:15 Temperature 97.8 F Pulse Rate 63 61 Pulse Rate [ 67 Network Operations Technician ] Respiratory 16 18 Rate Blood Pressure 184/118 165/105 O2 Sat by Pulse 96 96 Oximetry 05/07/20 05/07/20 22:17 22:30 Temperature Pulse Rate 65 56 L Pulse Rate [ Network Operations Technician ] Respiratory 18 18 Rate Blood Pressure 144/98 135/96 O2 Sat by Pulse 97 96 Oximetry Medical Decision Making <Smitha Scanlon - Last Filed: 05/07/20 22:41> - Lab Data Result diagrams: 05/08/20 11:55 <Alysha Barron - Last Filed: 05/12/20 00:27> - Medical Decision Making 64 year-old male patient was transferred here for admission for cardiology evaluation. Seen at [facility] today for evaluation of chest pain, elevated blood pressure, dizziness, and shortness of breath. He underwent extensive testing at their hospital. Had two negative troponins. CT angio head, neck, and chest which was negative. EKG showed no ST changes. Upon arrival patient state he has a mild pressure to his chest. BP remains somewhat elevated. We will admit to the hospital for further BP management and evaluation by cardiology. Patient is agreeable. (Smitha Scanlon) I was available for consultation in the emergency department. The history and physical exam were done by the midlevel provider. I was consulted for this patients care. I reviewed the case with the midlevel provider and based on their presentation of the patient, I agree with the assessment, medical decision making and plan of care as documented. Chart was dictated using Swift[employer](TM) by [employer] dictation software. Attempts were made to correct any dictation errors however some typographical errors may persist. Patient was seen during a national state of emergency due to the Covid-19 pandemic. (Alysha Barron) Disposition Decision to Admit Reason: Admit from EC Decision Date: 05/07/20 Decision Time: 22:16 <Smitha Scanlon - Last Filed: 05/07/20 22:41> <Alysha Barron - Last Filed: 05/12/20 00:27> Clinical Impression: Chest pain, Accelerated hypertension Disposition: ADMITTED IP TO THIS HOSP Condition: Serious
[2020-05-07] MEDS ORDERED: hydrALAZINE HCL 20 MG/ML 1 ML VIAL IVP PRN (22:18)
[2020-05-08] MEDS ORDERED: ASPIRIN 325 MG TAB PO SCH (09:00)
[2020-05-08] MEDS ORDERED: ALPRAZolam 0.5 MG TAB PO PRN (10:36)
[2020-05-08] MEDS ORDERED: ALPRAZolam 0.25 MG TAB PO PRN (10:36)
[2020-05-08] MEDS ORDERED: ATORVASTATIN 80 MG TAB PO STA (10:36)
[2020-05-08] MEDS ORDERED: SODIUM CHLORIDE 0.9% 1,000 ML in EMPTY BAG 1 BAG IV ONE (10:36)
[2020-05-08] MEDS ORDERED: ASPIRIN 325 MG TAB PO STA (10:36)
[2020-05-08] MEDS ORDERED: NITROGLYCERIN SL TABS 0.4 MG TAB SUBLINGUAL PRN (10:36)
--- NOTE | 2020-05-08 10:40 | P.CRDCN ---
History of Present Illness Consult date: 05/08/20 Chief complaint: High blood pressure, chest pain History of present illness: HISTORY OF PRESENT ILLNESS This is a 64-year-old male with past medical history of Patient states his blood pressure at home was 247/117. He checks his blood pressure about every 2 weeks. He gives history of having hypertension but has been off medication for 70 years. He thinks that he had a stress echocardiogram in the past that was not quite normal but patient did not go on for heart catheterization that was not recommended at the time. He states he has had some chest pain syndrome midsternal on the left side of the sternum as well as left arm involvement. This been going on and off for the past few weeks. He also complained of significant headache as well. Patient has family history of coronary artery disease with brother having a heart attack at age 50 and dad at age 42. He denies any previous diagnosis of heart disease for himself. He denies diabetes. He initially presented to [facility] emergency center and troponins were negative 2. A CT angiogram of the head and neck and chest were negative for acute findings. EKG was a normal sinus rhythm. No acute ST changes. He was given Ativan, nitroglycerin, hydralazine and Catapres and blood pressure was still elevated and patient was transferred to [facility] for further evaluation and cardiology consult. Repeat troponins of been negative on 2 draws. REVIEW OF SYSTEMS At the time of my evaluation Constitutional: No fever, no chills. No weakness, fatigue or lethargy. EENT: Reports headache. No dizziness. Lungs: No shortness of breath, cough, no sputum production. No wheezing. Cardiovascular: No chest pain, no lower extremity edema. No palpitations. No paroxysmal nocturnal dyspnea. No orthopnea. No lightheadedness or dizziness. No syncopal episodes. Abdominal: No abdominal pain. No nausea, vomiting. No diarrhea. No constipation. No bloody or tarry stools.. No loss of appetite. Genitourinary: No dysuria.. No urinary retention. Musculoskeletal: No myalgias. No muscle weakness, no gait dysfunction, no frequent falls. No back pain. No neck pain. Integumentary: No wounds, no lesions. No rash or pruritus. No unusual bruising. Neurologic: No aphasia. No facial droop. No change in mentation. No head injury. No headache. No paralysis. No paresthesia. Psychiatric: No depression. No anxiety. Endocrine: No abnormal blood sugars. PHYSICAL EXAMINATION Gen: This is a 64-year-old male. He is resting but appears to be comfortable and in no acute distress. VS: Afebrile, heart rate 60, blood pressure 121/56, pulse ox 96% on room air. HEENT: Head is atraumatic, normocephalic. Pupils equal, round. Sclerae is anicteric. NECK: Supple. No JVD. No lymphadenopathy. No thyromegaly. LUNGS: Clear to auscultation. No wheezes or rhonchi. No intercostal retractions. HEART: Regular rate and rhythm. No murmur. ABDOMEN: Soft. Bowel sounds are present. No masses. No tenderness. EXTREMITIES: No pedal edema. No calf tenderness. NEUROLOGICAL: Patient is awake, alert and oriented x3. Cranial nerves 2 through 12 are grossly intact. ASSESSMENT Chest pain, rule out unstable angina Accelerated hypertension Headache PLAN Recommended proceeding with heart catheterization. Patient's symptoms are concerning for unstable angina. Risk and benefits have been explained to the patient and he is agreeable to move forward with procedure today. Obtain 2-D echocardiogram and Doppler study to assess cardiac structure and function Further recommendations to follow based upon clinical course Thank you kindly for this consultation. Nurse practitioner note has been reviewed, I agree with documented findings and plan of care. Patient was seen and examined. Past Medical History Past Medical History: GERD/Reflux, Hyperlipidemia, Hypertension Additional Past Medical History / Comment(s): "wake up at night feeling like I am choking". NO MEDS FOR CHOLESTROL OR HTN- UNDER CONTROL PER PT. DX HIATAL HERNIA, sleep apnea possible per patient History of Any Multi-Drug Resistant Organisms: None Reported Past Surgical History: Hernia Repair Additional Past Surgical History / Comment(s): colonoscopy, EGD, lap. isabelle fundoplasty-2016 Past Anesthesia/Blood Transfusion Reactions: Motion Sickness Past Psychological History: No Psychological Hx Reported Smoking Status: Never smoker Past Alcohol Use History: Occasional Past Drug Use History: None Reported - Past Family History Mother Family Medical History: No Reported History Medications and Allergies Home Medications Medication Instructions Recorded Confirmed Type Ibuprofen [Motrin Ib] 400 mg PO Q8H PRN 05/07/20 05/07/20 History Allergies Allergy/AdvReac Type Severity Reaction Status Date / Time No Known Allergies Allergy Verified 05/07/20 21:55 Physical Exam Vitals: Vital Signs Temp Pulse Pulse Resp BP BP Pulse Ox 05/08/20 03:00 97.1 F L 60 15 121/56 96 05/07/20 23:00 98.0 F 59 L 16 140/91 95 05/07/20 22:30 56 L 18 135/96 96 05/07/20 22:17 65 18 144/98 97 05/07/20 22:15 61 18 165/105 96 05/07/20 22:00 67 05/07/20 21:47 97.8 F 63 16 184/118 96 Intake and Output 05/07/20 05/08/20 05/08/20 22:59 06:59 14:59 Other: Weight 84.822 kg 84.822 kg Results Cardiac Enzymes 05/08/20 05/08/20 Range/Units 00:00 05:09 Troponin I <0.012 <0.012 (0.000-0.034) ng/mL Current Medications Generic Name Dose Route Start Last Admin Trade Name Freq PRN Reason Stop Dose Admin Aspirin 325 mg 05/08/20 09:00 Aspirin 325 Mg Tab PO DAILY LUISITO Hydralazine HCl 20 mg 05/07/20 22:18 Hydralazine Hcl 20 Mg/Ml 1 Ml Vial IVP Q6HR PRN Blood Pressure - High Morphine Sulfate 4 mg 05/07/20 22:16 Morphine Sulfate 4 Mg/Ml Syringe IV Q4HR PRN Severe Pain Naloxone HCl 0.2 mg 05/07/20 22:16 Naloxone 0.4 Mg/Ml 1 Ml Vial IV Q2M PRN Opioid Reversal Ondansetron HCl 4 mg 05/07/20 22:16 Ondansetron 4 Mg/2 Ml Vial IVP Q8HR PRN Nausea And Vomiting Intake and Output 05/07/20 05/08/20 05/08/20 22:59 06:59 14:59 Other: Weight 84.822 kg 84.822 kg
[2020-05-08 12:27] LABS: African American GFR (CKD) 74 (>60 ml/min/1.73 sqM); Anion Gap 7 mmol/L; Blood Urea Nitrogen 14 mg/dL (9-20); Calcium 10.8 mg/dL (8.4-10.2); Carbon Dioxide 27 mmol/L (22-30); Chloride 105 mmol/L (98-107); Glucose 100 mg/dL (74-99); Non-African American GFR(CKD) 64 (>60 ml/min/1.73 sqM); Potassium 5.1 mmol/L (3.5-5.1); Sodium 139 mmol/L (137-145)
[2020-05-08] MEDS ORDERED: VERAPAMIL 2.5 MG/ML 2 ML AMP ONE (12:47)
[2020-05-08] MEDS ORDERED: LIDOCAINE 1% INJ 10MG/ML (20 ML MDV) ONE (12:47)
[2020-05-08] MEDS ORDERED: HEPARIN SODIUM 1,000 UN/ML (10ML VL) ONE (12:48)
[2020-05-08] MEDS ORDERED: fentaNYL (PF) 50 MCG/ML 2 ML AMP ONE (12:48)
[2020-05-08] MEDS: MIDAZOLAM 2 MG/2 ML VIAL IV ONE ×2 (12:53→13:01)
[2020-05-08] MEDS ORDERED: fentaNYL (PF) 50 MCG/ML 2 ML AMP IV ONE (12:53)
[2020-05-08] MEDS ORDERED: IV FLUID CONTINUATION 950 ML IV ONE (12:57)
[2020-05-08] MEDS ORDERED: LIDOCAINE 1% INJ 10MG/ML (20 ML MDV) SQ ONE (12:57)
[2020-05-08] MEDS ORDERED: VERAPAMIL SYRINGE (5 MG/10 ML) INTRAARTER ONE (12:58)
[2020-05-08] MEDS ORDERED: HEPARIN SODIUM 1,000 UN/ML (10ML VL) IV ONE (13:00)
[2020-05-08] MEDS ORDERED: METOPROLOL TARTRATE 5 MG/5 ML VIAL IVP ONE ×2 (13:04→13:06)
[2020-05-08] MEDS ORDERED: IOPAMIDOL-370 125ML BTL INJ ONE (13:11)
[2020-05-08] MEDS ORDERED: RX INFO: IV CONTRAST WAS GIVEN 1 EACH MISC MISCELLANE PRN (13:14)
[2020-05-08] MEDS ORDERED: SODIUM CHLORIDE 0.9% 1,000 ML IV SCH (13:15)
--- NOTE | 2020-05-08 13:26 | P.CARDCATH ---
Date of Procedure: 05/08/20 Preoperative Diagnosis: Unstable angina Postoperative Diagnosis: Mild coronary artery disease Procedure(s) Performed: Left heart catheterization without left ventricular Description of Procedure: HISTORY: This is a 64-year-old gentleman with history of hypertension and family history of ischemic heart disease who presented to this hospital with complaints of chest pain. Patient had computed tomography scan of the chest and was not found any dissection. His blood pressure was very high. Subsequently was transferred to this hospital for further evaluation. Patient claimed the pain was intermittent and going to the left arm. He has strong family history of ischemic heart disease. Patient was given the choice of having a stress test or cardiac catheterization for definitive diagnosis. Patient preferred to have cardiac catheterization CONSENT:I have discussed the risks, benefits and alternative therapies for the above-mentioned procedure and for both sedation/analgesia as well as necessary blood product administration, if indicated, as they pertain to this patient. The patient has indicated understanding and acceptance of the risks and procedures discussed. PROCEDURE: Patient was brought to the lab in a fasting state. Patient was given some IV sedation. The right wrist is infiltrated with lidocaine and right radial artery was entered using Seldinger technique. A 6-[place] catheter was left in place and selective coronary arteriography was performed. Patient tolerated the procedure well. He had been was applied for hemostasis. No immediate complications were noted and patient was transferred to [facility] in a stable condition Conscious Sedation: Versed 2mg Fentanyl 50 g Duration 14 minutes HEMODYNAMICS: . The aortic pressure is about 158/100. Left ankle end-diastolic pressure is about 10. There was no gradient across the aortic valve SELECTIVE CORONARY ARTERIOGRAPHY: LEFT MAIN: Normal length and free of occlusive disease THE LEFT ANTERIOR DESCENDING CORONARY ARTERY: . This is a good caliber vessel giving rise to good-sized diagonal branch. The LAD has about 30-40% stenosis at the origin of this first septal branch. The rest of the LAD is free of occlusive disease THE LEFT CIRCUMFLEX AND IS CORONARY ARTERY: . The circumflex and is coronary artery is a moderate caliber vessel giving rise good- sized OM branch. The circumflex coronary artery and branches are free of any significant focal lesion. Mild intimal disease noted THE RIGHT CORONARY ARTERY: . The right coronary artery is a huge caliber vessel giving rise good-sized PDA and PLV. This has mild diffuse intimal disease and also ectasia. No focal disease noted LEFT VENTRICULOGRAPHY: Not performed FINAL IMPRESSION: . Mild diffuse coronary artery disease without any critical lesions. There is about 30-40% lesion in the LAD at the origin of a septal PLAN: Continuation of maximal medical therapy and this factor modification PROGNOSIS: . Good
[2020-05-08 14:56] VITALS: RESP 18
--- NOTE | 2020-05-08 16:16 | ECHOF ---
Referral Reason:chest pain,HTN MEASUREMENTS -------- HEIGHT: 175.3 cm WEIGHT: 84.8 kg BP: RVIDd: 2.8 cm (< 3.3) IVSd: 1.1 cm (0.6 - 1.1) LVIDd: 4.4 cm (3.9 - 5.3) LVPWd: 1.3 cm (0.6 - 1.1) IVSs: 1.9 cm LVIDs: 2.7 cm LVPWs: 1.6 cm LAESV Index (A-L): 16.90 ml/m MV EXCURSION: 19.436 mm (> 18.000) MV EF SLOPE: 62 mm/s (70 - 150) EPSS: 0.3 cm MV E Edward: 0.54 m/s MV DecT: 286 ms MV A Edward: 0.63 m/s MV E/A Ratio: 0.86 RAP: 5.00 mmHg RVSP: 23.85 mmHg FINDINGS -------- Sinus rhythm. This was a technically good study. LV size, wall thickness and systolic function are normal, with an EF greater than 55%. The left sandra tricular size is normal. The right ventricle is normal in size. Normal LA size by volume 22+/-6 ml/m2. The right atrial size is normal. Trace to mild aortic regurgitation. Mild mitral regurgitation is present. Mild tricuspid regurgitation present. Right ventricular systolic pressure is normal at < 35 mmHg. There is no pulmonic regurgitation present. The aortic root size is normal. There is no pericardial effusion. CONCLUSIONS -------- 1. LV size, wall thickness and systolic function are normal, with an EF greater than 55%. 2. The left ventricular size is normal. 3. The right ventricle is normal in size. 4. Normal LA size by volume 22+/-6 ml/m2. 5. The right atrial size is normal. 6. Trace to mild aortic regurgitation. 7. Mild mitral regurgitation is present. 8. Mild tricuspid regurgitation present. 9. The aortic root size is normal. 10. There is no pericardial effusion. LUNCH WAGON OPERATOR: Muriel Urena RD
[2020-05-08] MEDS ORDERED: METOPROLOL TARTRATE 50 MG TAB PO SCH (21:00)
[2020-05-09 01:16] VITALS: BP 150/86; PULSE 54; TEMP 98
[2020-05-09] MEDS ORDERED: HEPARIN SODIUM,PORCINE 2,500 UNIT in SODIUM CHLORIDE 0.9% 250 ML IRRIGATION PRN (07:00)
[2020-05-09] MEDS ORDERED: HEPARIN SODIUM,PORCINE 10,000 UNIT in SODIUM CHLORIDE 0.9% 1,000 ML IRRIGATION PRN (07:00)
[2020-05-09] MEDS ORDERED: ASPIRIN 81 MG PO SCH (09:00)
== END 2020-05-08 22:10 | disposition home or self-care (01) ==
LOC: EC 21:46 → 6NMEDSUR 22:11
PROVIDERS: ADMIT Hospitalist; ATTEND Hospitalist
DX: R07.2 Precordial pain (principal); R07.89 Other chest pain; I10 Essential (primary) hypertension; R06.02 Shortness of breath; R42 Dizziness and giddiness; E78.5 Hyperlipidemia, unspecified; K21.9 Gastro-esophageal reflux disease without esophagitis; R51.9 Headache, unspecified; I25.10 Atherosclerotic heart disease of native coronary artery without angina pectoris; Z79.1 Long term (current) use of non-steroidal anti-inflammatories (NSAID); Z82.49 Family history of ischemic heart disease and other diseases of the circulatory system
CPT/HCPCS: 93005; 99285; 93306; 93458; 80048; 84484; G0378 ×2; C1769; C1894; J2250; J2001; J3010; J1644; Q9967

== ENCOUNTER → 2021-06-30 | Outpatient (CLI) | payer MEDICARE ==
--- NOTE | 2021-06-30 09:12 | FL ---
ESOPHOGRAM. HISTORY: Dysphagia Esophagram was performed per the air contrast technique. The patient swallowed barium and effervesce nt crystals without difficulty or delay. Esophageal peristalsis and motility appear to be within normal limits. There is no evidence for filling defect, mass or diverticulum. Very small reducible hiatal hernia suggested. Subsequently single contrast cervical esophagram was performed which fails demonstrate evidence for a spiration penetration or mass. IMPRESSION: Very small reducible hiatal hernia suggested.
== END | disposition home or self-care (01) ==
LOC: RADUSWWP 07:48
PROVIDERS: ATTEND Surgery Plastic and Reconstructive Surgery
DX: K21.00 Gastro-esophageal reflux disease with esophagitis, without bleeding (principal)
CPT/HCPCS: 74220

== ENCOUNTER 2021-07-13 09:21 | Day surgery (SDC) | payer MEDICARE ==
[2021-07-08 13:58] VITALS: BMI 27.3
--- NOTE | 2021-07-13 08:52 | P.GSHP ---
History of Present Illness H&P Date: 07/13/21 CHIEF COMPLAINT: GERD and colon screen HISTORY OF PRESENT ILLNESS: The patient is a 65-year-old male who presents with gastroesophageal reflux disease and need for colon screen. Upper and lower endoscopy were offered for further evaluation and management. PAST MEDICAL HISTORY: Please see list. PAST SURGICAL HISTORY: Please see list. MEDICATIONS: Please see list. ALLERGIES: Please see list. SOCIAL HISTORY: No illicit drug use FAMILY HISTORY: No reports of Crohn disease or ulcerative colitis. REVIEW OF ORGAN SYSTEMS: CONSTITUTIONAL: No reports of fevers or chills. GI: Denies any blood in stools or constipation. PHYSICAL EXAM: VITAL SIGNS: Stable GENERAL: Well-developed pleasant in no acute distress. HEENT: No scleral icterus. Extraocular movements grossly intact. Moist buccal mucosa. NECK: Supple without lymphadenopathy. CHEST: Unlabored respirations. Equal bilateral excursions. CARDIOVASCULAR: Regular rate and rhythm. Distal 2+ pulses. ABDOMEN: Soft, nondistended. MUSCULOSKELETAL: No clubbing, cyanosis, or edema. ASSESSMENT: 1. Gastroesophageal reflux disease 2. Colon screen. PLAN: 1. Recommend proceeding with an upper and lower endoscopy Past Medical History Past Medical History: GERD/Reflux, Hyperlipidemia, Hypertension Additional Past Medical History / Comment(s): hx hiatal hernia, abdominal cramps, diarrhea, History of Any Multi-Drug Resistant Organisms: None Reported Past Surgical History: Hernia Repair Additional Past Surgical History / Comment(s): colonoscopy, EGD, lap. isabelle fundoplasty x 2, Past Anesthesia/Blood Transfusion Reactions: Motion Sickness Smoking Status: Never smoker - Past Family History Sister(s) Family Medical History: Cancer Mother Family Medical History: No Reported History Medications and Allergies Home Medications Medication Instructions Recorded Confirmed Type Ibuprofen 200 mg PO Q8H PRN 07/08/21 07/08/21 History Multivitamins, Thera [Multivitamin 1 tab PO DAILY 07/08/21 07/08/21 History (formulary)] Omeprazole [PriLOSEC] 20 mg PO 1200 PRN 07/08/21 07/08/21 History lisinopriL 10 mg PO HS 07/08/21 07/08/21 History Allergies Allergy/AdvReac Type Severity Reaction Status Date / Time No Known Allergies Allergy Verified 07/08/21 13:50
[~2021-07-13 09:21] MED LIST changes: -DEXAMETHASONE SOD PHOSPHATE 10 MG/ML 1 ML VIAL IV ONE; -HYDROmorphone 0.5 MG/0.5 ML SYRINGE IVP PRN; +LACTATED RINGERS 1,000 ML IV SCH; -MIDAZOLAM 2 MG/2 ML VIAL IV PRN; -MORPHINE SULFATE 2 MG/ML SYRINGE IV PRN; -SCOPOLAMINE 1.5MG/72HR PATCH TRANSDERM ONE; -ceFAZolin IN SWFI 2 GM/20 ML SYRINGE IVP ONE; -fentaNYL (PF) 50 MCG/ML 2 ML AMP IV PRN
[2021-07-13 10:57] VITALS: RESP 16; TEMP 97.1
[2021-07-13] MEDS ORDERED: LIDOCAINE 1% (10MG/ML) FOR IV START INTRADERMA ONE (11:03)
[2021-07-13] MEDS ORDERED: LIDOCAINE 1% INJ 10MG/ML (20 ML MDV) ONE (11:28)
[2021-07-13] MEDS ORDERED: PROPOFOL 10 MG/ML 20 ML VIAL IV ONE (11:28)
--- NOTE | 2021-07-13 11:41 | P.PCN ---
Date of Procedure: 07/13/21 Description of Procedure: PREOPERATIVE DIAGNOSIS: Gastroesophageal reflux disease. History of [place] fundoplasty POSTOPERATIVE DIAGNOSIS: Gastroesophageal reflux disease. History of [place] fundoplasty Gastritis. Diaphragmatic hiatal hernia, recurrent OPERATION: Esophagogastroduodenoscopy with biopsies along antrum and duodenum SURGEON: Marci Lane MD ANESTHESIA: MAC. INDICATIONS: The patient is a 65-year-old male who presents with reflux disease. Benefits and risks of the procedure were described. Informed consent was obtained. DESCRIPTION: The patient was brought into the endoscopy suite and laid in the left lateral decubitus position. An Olympus gastroscope was passed along the posterior oropharynx down to the distal esophagus where the squamocolumnar junction was encountered at 41 cm from the incisors. The stomach was entered and no bile reflux was found. Additional findings are listed below. Biopsies with cold forceps were obtained of the antrum. The first through third portion of the duodenum was examined. Retroflexion of the scope confirmed Hill grade 2 lower esophageal valve. The squamocolumnar junction demonstrated LA grade A erosive esophagitis. The stomach was desufflated. The patient tolerated the procedure well. FINDINGS: Squamocolumnar junction 41 cm from the incisors. Diaphragmatic hiatus at 42 cm. Hiatal hernia, 1 cm, recurrent Hill grade 2 lower esophageal valve. LA grade A erosive esophagitis. Duodenal lesion at third portion of duodenum, 5 mm, biopsied Biopsies of antrum and duodenum obtained Chronic gastritis RECOMMENDATIONS: Upper endoscopy as needed. Continue omeprazole for symptomatic treatment
--- NOTE | 2021-07-13 11:53 | P.PCN ---
Date of Procedure: 07/13/21 Description of Procedure: PREOPERATIVE DIAGNOSIS: Colonoscopy screening Family history colon cancer POSTOPERATIVE DIAGNOSIS: Colonoscopy screening Family history colon cancer Internal and external hemorrhoids, grade 3 OPERATION: Colonoscopy to the cecum, ileocecal valve and appendiceal orifice. SURGEON: Marci Lane MD. ANESTHESIA: MAC. INDICATIONS: The patient is a 65-year-old male who presents for colonoscopy screening. Benefits and risks were described and informed consent was obtained. DESCRIPTION OF PROCEDURE: The patient had undergone Sutab prep. The patient had been brought into the operating room and laid in the left lateral decubitus position. After adequate intravenous sedation, the rectum was examined with 2% lidocaine jelly. The prostate was normal. External hemorrhoids were encountered. The rectal tone was within normal limits. No lesions were palpated in the rectal vault. An Olympus colonoscope was advanced until the cecum, ileocecal valve and appendiceal orifice were clearly viewed. The prep was good. No scattered diverticulosis was encountered. No colonic polyps were found. No evidence of focal colitis was found. Retroflexion of the scope demonstrated grade 1 internal hemorrhoids without active bleeding or inflammation. The colon was desufflated. The patient had tolerated the procedure well. Withdrawal time was over 6 minutes. FINDINGS: Aronchick preparation quality scale 2 (1-5) Internal hemorrhoids, grade 3 External prolapsed hemorrhoids, grade 3 No arteriovenous malformations. No adenomatous polyps. No focal colitis. RECOMMENDATIONS: Lower endoscopy in 5 years, 2026 with family history of colon cancer. Plan - Discharge Summary New Discharge Prescriptions: Continue lisinopriL 10 mg PO HS Ibuprofen 200 mg PO Q8H PRN PRN Reason: Pain Multivitamins, Thera [Multivitamin (formulary)] 1 tab PO DAILY Discontinued Omeprazole [PriLOSEC] 20 mg PO 1200 PRN PRN Reason: reflux Discharge Medication List Ibuprofen 200 mg PO Q8H PRN 07/08/21 [History] Multivitamins, Thera [Multivitamin (formulary)] 1 tab PO DAILY 07/08/21 [History] lisinopriL 10 mg PO HS 07/08/21 [History] Follow up Appointment(s)/Referral(s): Marci Lane MD [STAFF PHYSICIAN] - 08/09/21 Patient Instructions/Handouts: *Surgery [facility] - (Anesthesia) Endoscopy Discharge Instructions, Hiatal Hernia (DC), Diverticulosis (DC), Diverticulosis Diet (GEN) Activity/Diet/Wound Care/Special Instructions: Repeat colonoscopy in 5 years, 2026 Discharge Disposition: HOME SELF-CARE
[2021-07-13 12:07] VITALS: BP 147/85; PULSE 50
== END 2021-07-13 13:14 | disposition home or self-care (01) ==
LOC: ORWHC2ENDO 09:21
PROVIDERS: ATTEND Surgery Plastic and Reconstructive Surgery
DX: Z12.11 Encounter for screening for malignant neoplasm of colon (principal); Z80.0 Family history of malignant neoplasm of digestive organs; K64.8 Other hemorrhoids; K64.4 Residual hemorrhoidal skin tags; K29.50 Unspecified chronic gastritis without bleeding; K21.00 Gastro-esophageal reflux disease with esophagitis, without bleeding; K21.9 Gastro-esophageal reflux disease without esophagitis; E78.5 Hyperlipidemia, unspecified; I10 Essential (primary) hypertension; Z80.9 Family history of malignant neoplasm, unspecified; Z98.84 Bariatric surgery status
CPT/HCPCS: 45378; 43239; 88305; J2001; J2704

== ENCOUNTER 2022-12-22 16:04 | Emergency (ER) | payer MEDICARE ==
[2022-12-22 16:15] VITALS: TEMP 98.6
--- NOTE | 2022-12-22 16:25 | ED ---
Arrhythmia/Palpitations HPI - General Chief Complaint: Arrhythmia/Palpitations Stated Complaint: abn EKG Time Seen by Provider: 12/22/22 16:16 Source: patient, RN notes reviewed, old records reviewed Mode of arrival: ambulatory Limitations: no limitations - History of Present Illness Initial Comments: This is a 67-year-old male DF for evaluation today. Today patient presents for evaluation regards to concern for heart attack. Patient was sent in by his primary care where he was evaluated for some neck pain neck pain anterior chest pain. Patient does have history of hiatal hernia repair recent. No travel history no sick contacts no fever cough or congestion no trauma. No other complaints. Patient was told by his primary care that something as well as heart continues to go to the hospital. MD Complaint: palpitations, irregular heart beat -: hour(s) Context: occurred during rest Associated Symptoms: denies other symptoms Treatments Prior to Arrival: other (0) - Related Data Home Medications Medication Instructions Recorded Confirmed lisinopriL [Prinivil] 10 mg PO HS 07/08/21 12/22/22 Atorvastatin [Lipitor] 10 mg PO HS 12/22/22 12/22/22 Omeprazole 20 mg PO HS 12/22/22 12/22/22 Allergies Allergy/AdvReac Type Severity Reaction Status Date / Time No Known Allergies Allergy Verified 12/22/22 20:00 Review of Systems ROS Statement: Those systems with pertinent positive or pertinent negative responses have been documented in the HPI. ROS Other: All systems not noted in ROS Statement are negative. Past Medical History Past Medical History: GERD/Reflux, Hyperlipidemia, Hypertension, Sleep Apnea/CPAP/BIPAP Additional Past Medical History / Comment(s): "wake up at night feeling like I am choking". NO MEDS FOR CHOLESTROL OR HTN- UNDER CONTROL PER PT. DX HIATAL HERNIA, sleep apnea possible per patient History of Any Multi-Drug Resistant Organisms: None Reported Past Surgical History: Hernia Repair Additional Past Surgical History / Comment(s): colonoscopy, EGD, lap. isabelle fundoplasty-2016 Past Anesthesia/Blood Transfusion Reactions: Motion Sickness Past Psychological History: No Psychological Hx Reported Smoking Status: Never smoker Past Alcohol Use History: Daily Past Drug Use History: None Reported - Past Family History Sister(s) Family Medical History: Cancer Mother Family Medical History: No Reported History General Exam Limitations: no limitations General appearance: alert, in no apparent distress Head exam: Present: atraumatic, normocephalic, normal inspection Eye exam: Present: normal appearance, PERRL, EOMI. Absent: scleral icterus, conjunctival injection, periorbital swelling ENT exam: Present: normal exam, mucous membranes moist Neck exam: Present: normal inspection. Absent: tenderness, meningismus, lymphadenopathy Respiratory exam: Present: normal lung sounds bilaterally. Absent: respiratory distress, wheezes, rales, rhonchi, stridor Cardiovascular Exam: Present: regular rate, normal rhythm, normal heart sounds. Absent: systolic murmur, diastolic murmur, rubs, gallop, clicks GI/Abdominal exam: Present: soft, normal bowel sounds. Absent: distended, tenderness, guarding, rebound, rigid Extremities exam: Present: normal inspection, full ROM, normal capillary refill. Absent: tenderness, pedal edema, joint swelling, calf tenderness Back exam: Present: normal inspection Neurological exam: Present: alert, oriented X3, CN II-XII intact Psychiatric exam: Present: normal affect, normal mood Skin exam: Present: warm, dry, intact, normal color. Absent: rash Course Vital Signs 12/22/22 12/22/22 12/22/22 16:11 17:07 21:00 Temperature 98.6 F Pulse Rate 44 L 50 L 46 L Respiratory 20 20 16 Rate Blood Pressure 171/96 163/92 139/85 O2 Sat by Pulse 99 99 96 Oximetry - Reevaluation(s) Reevaluation #1: 12/22/22 23:55 Record is reviewed Reevaluation #2: 12/22/22 23:55 Patient is no acute pain here in the ER no chest pain Reevaluation #3: 12/22/22 23:55 Patient informed results questions answered Reevaluation #4: 12/22/22 23:55 Was pt. sent in by a medical professional or institution (, PA, BARREL MARKER, urgent care, hospital, or longterm...) When possible be specific @ -no Did you speak to anyone other than the patient for history (EMS, parent, family, police, friend...)? What history was obtained from this source @ -no Did you review nursing and triage notes (agree or disagree)? Why? @ -agree Are old charts reviewed (outside hosp., previous admission, EMS record, old EKG, old radiological studies, urgent care reports/EKG's, longterm records)? Report findings @ -yes Differential Diagnosis (chest pain, altered mental status, abdominal pain women, abdominal pain men, vaginal bleeding, weakness, fever, dyspnea, syncope, headache, dizziness, GI bleed, back pain, seizure, CVA, palpatations, mental health, musculoskeletal)? @ -prior EKG interpreted by me (3pts min.). @ -yes X-rays interpreted by me (1pt min.). @ -yes CT interpreted by me (1pt min.). @ -no U/S interpreted by me (1pt. min.). @ -no What testing was considered but not performed or refused? (CT, X-rays, U/S, labs)? Why? @ -none What meds were considered but not given or refused? Why? @ -none Did you discuss the management of the patient with other professionals (professionals i.e. , PA, BARREL MARKER, lab, RT, psych nurse, social work msw, leno sewer, teacher, upscale security officer, case loader operator)? Give summary @ -no Was smoking cessation discussed for >3mins.? @ -no Was critical care preformed (if so, how long)? @ -no Were there social determinants of health that impacted care today? How? (Homelessness, low income, unemployed, alcoholism, drug addiction, transportation, low edu. Level, literacy, decrease access to med. care, half-way, rehab)? @ -none Was there de-escalation of care discussed even if they declined (Discuss DNR or withdrawal of care, Hospice)? DNR status @ -no What co-morbidities impacted this encounter? (DM, HTN, Smoking, COPD, CAD, Cancer, CVA, ARF, Chemo, Hep., AIDS, mental health diagnosis, sleep apnea, morbid obesity)? @ -none Was patient admitted / discharged? Hospital course, mention meds given and route, prescriptions, significant lab abnormalities, going to OR and other pertinent info. @ - Undiagnosed new problem with uncertain prognosis? @ -no Drug Therapy requiring intensive monitoring for toxicity (Heparin, Nitro, Insulin, Cardizem)? @ -no Were any procedures done? @ -no Diagnosis/symptom? @ - Acute, or Chronic, or Acute on Chronic? @ -Acute Uncomplicated (without systemic symptoms) or Complicated (systemic symptoms)? @ -Complicated Side effects of treatment? @ -no Exacerbation, Progression, or Severe Exacerbation? @ -exacerbation Poses a threat to life or bodily function? How? (Chest pain, [place], [place], pneumonia, PE, COPD, DKA, ARF, appy, cholecystitis, CVA, Diverticulitis, Homicidal, Suicidal, threat to staff... and all critical care pts) @ -yes EKG Findings - EKG Comments: EKG Findings:: EKG is sinus bradycardia 55 FL 150 QRS 86 QTc 404 Medical Decision Making - Medical Decision Making 67 male DF for evaluation patient was in for possible abnormal EKG. EKG is normal here in the ER 2 troponin is negative 2 patient has further imaging to assess chest wall pain anterior chest pain which is negative patient can be discharged home - Lab Data Result diagrams: 12/22/22 17:17 12/22/22 17:17 Lab Results 12/22/22 12/22/22 12/22/22 Range/Units 17:17 17:17 17:17 WBC 4.7 (3.8-10.6) k/uL RBC 4.53 (4.30-5.90) m/uL Hgb 14.0 (13.0-17.5) gm/dL Hct 43.3 (39.0-53.0) % MCV 95.5 (80.0-100.0) fL MCH 31.0 (25.0-35.0) pg MCHC 32.4 (31.0-37.0) g/dL RDW 13.1 (11.5-15.5) % Plt Count 184 (150-450) k/uL MPV 8.0 Neutrophils % 62 % Lymphocytes % 29 % Monocytes % 5 % Eosinophils % 2 % Basophils % 0 % Neutrophils # 2.9 (1.3-7.7) k/uL Lymphocytes # 1.4 (1.0-4.8) k/uL Monocytes # 0.2 (0-1.0) k/uL Eosinophils # 0.1 (0-0.7) k/uL Basophils # 0.0 (0-0.2) k/uL PT 10.0 (9.0-12.0) sec INR 0.9 (<1.2) APTT 22.8 (22.0-30.0) sec Sodium 136 L (137-145) mmol/L Potassium 4.5 (3.5-5.1) mmol/L Chloride 104 (98-107) mmol/L Carbon Dioxide 26 (22-30) mmol/L Anion Gap 6 mmol/L BUN 11 (9-20) mg/dL Creatinine 1.08 (0.66-1.25) mg/dL Est GFR (CKD-EPI)AfAm 82 (>60 ml/min/1.73 sqM) Est GFR (CKD-EPI)NonAf 71 (>60 ml/min/1.73 sqM) Glucose 95 (74-99) mg/dL Calcium 10.5 H (8.4-10.2) mg/dL Phosphorus 3.3 (2.5-4.5) mg/dL Magnesium 2.1 (1.6-2.3) mg/dL Total Bilirubin 0.6 (0.2-1.3) mg/dL AST 25 (17-59) U/L ALT 27 (4-49) U/L Alkaline Phosphatase 47 (38-126) U/L Troponin I (0.000-0.034) ng/mL NT-Pro-B Natriuret Pep 44 pg/mL Total Protein 6.6 (6.3-8.2) g/dL Albumin 4.0 (3.5-5.0) g/dL 12/22/22 12/22/22 Range/Units 17:17 19:41 WBC (3.8-10.6) k/uL RBC (4.30-5.90) m/uL Hgb (13.0-17.5) gm/dL Hct (39.0-53.0) % MCV (80.0-100.0) fL MCH (25.0-35.0) pg MCHC (31.0-37.0) g/dL RDW (11.5-15.5) % Plt Count (150-450) k/uL MPV Neutrophils % % Lymphocytes % % Monocytes % % Eosinophils % % Basophils % % Neutrophils # (1.3-7.7) k/uL Lymphocytes # (1.0-4.8) k/uL Monocytes # (0-1.0) k/uL Eosinophils # (0-0.7) k/uL Basophils # (0-0.2) k/uL PT (9.0-12.0) sec INR (<1.2) APTT (22.0-30.0) sec Sodium (137-145) mmol/L Potassium (3.5-5.1) mmol/L Chloride (98-107) mmol/L Carbon Dioxide (22-30) mmol/L Anion Gap mmol/L BUN (9-20) mg/dL Creatinine (0.66-1.25) mg/dL Est GFR (CKD-EPI)AfAm (>60 ml/min/1.73 sqM) Est GFR (CKD-EPI)NonAf (>60 ml/min/1.73 sqM) Glucose (74-99) mg/dL Calcium (8.4-10.2) mg/dL Phosphorus (2.5-4.5) mg/dL Magnesium (1.6-2.3) mg/dL Total Bilirubin (0.2-1.3) mg/dL AST (17-59) U/L ALT (4-49) U/L Alkaline Phosphatase (38-126) U/L Troponin I <0.012 <0.012 (0.000-0.034) ng/mL NT-Pro-B Natriuret Pep pg/mL Total Protein (6.3-8.2) g/dL Albumin (3.5-5.0) g/dL - Radiology Data Radiology results: report reviewed (CT chest negative for significant acute medical injury disease), image reviewed Disposition Clinical Impression: Neck pain Disposition: HOME SELF-CARE Condition: Good Instructions (If sedation given, give patient instructions): Neck Pain (ED) Is patient prescribed a controlled substance at d/c from ED?: No Referrals: Matthew Macias MD [Primary Care Provider] - 1-2 days Time of Disposition: 21:00
[2022-12-22 17:27] LABS: Basophils % (A) 0 %; Eosinophils # (A) 0.1 k/uL (0-0.7); Eosinophils % (A) 2 %; HCT 43.3 % (39.0-53.0); Lymphocytes # (A) 1.4 k/uL (1.0-4.8); Lymphocytes % (A) 29 %; MCHC 32.4 g/dL (31.0-37.0); MCV 95.5 fL (80.0-100.0); Monocytes # (A) 0.2 k/uL (0-1.0); Monocytes % (A) 5 %; Neutrophils # (A) 2.9 k/uL (1.3-7.7); Neutrophils % (A) 62 %; Platelet Count 184 k/uL (150-450); RBC 4.53 m/uL (4.30-5.90); RDW 13.1 % (11.5-15.5); WBC 4.7 k/uL (3.8-10.6)
[2022-12-22 17:36] LABS: ALT 27 U/L (4-49); AST 25 U/L (17-59); African American GFR (CKD) 82 (>60 ml/min/1.73 sqM); Alkaline Phosphatase 47 U/L (38-126); Anion Gap 6 mmol/L; Blood Urea Nitrogen 11 mg/dL (9-20); Calcium 10.5 mg/dL (8.4-10.2); Carbon Dioxide 26 mmol/L (22-30); Chloride 104 mmol/L (98-107); Glucose 95 mg/dL (74-99); Magnesium 2.1 mg/dL (1.6-2.3); Non-African American GFR(CKD) 71 (>60 ml/min/1.73 sqM); Phosphorus 3.3 mg/dL (2.5-4.5); Potassium 4.5 mmol/L (3.5-5.1); Sodium 136 mmol/L (137-145); Total Bilirubin 0.6 mg/dL (0.2-1.3); Total Protein 6.6 g/dL (6.3-8.2)
[2022-12-22 17:42] LABS: INR 0.9 (<1.2); Partial Thromboplastin Time 22.8 sec (22.0-30.0)
[2022-12-22 17:44] LABS: NT-Pro-B-Type Natriuretic Pept 44 pg/mL
[2022-12-22] MEDS ORDERED: RX INFO: IV CONTRAST WAS GIVEN 1 EACH MISC MISCELLANE PRN (19:34)
--- NOTE | 2022-12-22 20:58 | CT ---
EXAMINATION TYPE: CT chest w con DATE OF EXAM: 12/22/2022 COMPARISON: None HISTORY: Abnormal EKG at PCP's office. CT DLP: Combined DLP of 809.8 mGycm, Automated exposure control for dose reduction was used. CONTRAST: Performed injected with 100 ml mL of Isovue 300. TECHNIQUE: Axial images were obtained at 5 mm thick sections. Reconstructed images are reviewed on [employer] computer in the coronal plane. FINDINGS: Portion of the thyroid visualized is normal. No suspicious lung nodules or focal infiltrates are present. No enlarged mediastinal or hilar adenopathy is evident. The ascending aorta diameter at the level o f the main pulmonary artery is 3.8 cm. The main pulmonary artery diameter at the bifurcation is 3.[address] sections are obtained through the upper abdomen. Abdomen is essentially unremarkable. IMPRESSION: 1. No acute pulmonary process. Graphically apparent. 2. No acute radiographic changes
--- NOTE | 2022-12-22 21:15 | CT ---
EXAMINATION TYPE: CT soft tissue neck w con DATE OF EXAM: 12/22/2022 COMPARISON: None HISTORY: Neck pain on and off x1mo. CT DLP: Combined DLP of 809.8 mGycm CONTRAST: Patient injected with 100 ml mL of Isovue 300. TECHNIQUE: Axial images at 3 mm thick sections. Reconstructed images in the coronal plane and sagitt al plane are reviewed. FINDINGS: Limited CT sections are obtained the lung apices. The lung apices appear clear. CT neck: The torus tubarius and fossa of Rosenmuller are normal. Passenger Service Agent spaces are normal. Para nasal sinuses and mastoid air cells are clear. Parotid glands appear normal and symmetrical. Submandibular glands, are normal. Parapharyngeal spac es are normal. No suspicious adenopathy is evident. The hypopharynx appears within normal limits. Vocal cord level appear symmetrical. Thyroid as visualized is normal. Anterior vertebral body spurring is present C3-C7. Posterior endplate spurring is present C5-6 C6-7. Prevertebral space is normal. IMPRESSION: 1. No suspicious graphic abnormality to account for neck pain.
[2022-12-22 21:17] VITALS: BP 139/85; PULSE 46; RESP 16
== END 2022-12-22 21:41 | disposition home or self-care (01) ==
LOC: EC 16:04
DX: M54.2 Cervicalgia (principal); R00.1 Bradycardia, unspecified; I10 Essential (primary) hypertension; E78.5 Hyperlipidemia, unspecified; K21.9 Gastro-esophageal reflux disease without esophagitis; Z79.899 Other long term (current) drug therapy
CPT/HCPCS: 36415; 93005; 83880; 80053; 83735; 84100; 84484; 85025; 85610; 85730; 70491; 71260; 99285; Q9967